=== PATIENT | female | born 1950 | race Caucasian/White ===

== ENCOUNTER 2018-06-04 00:16 | Emergency (ER) | payer MEDICARE, OTHER ==
[~2018-06-04] VITALS: Ht 165.1 cm; Wt 72.6 kg
--- NOTE | 2018-06-04 00:40 | NUR ---
Pt bib rescue. Per paramedics, pt c/o abdominal pain, but pt admits to ER staff that she has no medical complaints and would like to get help with finding placement. Patient states she "wants to find a place to stay with a shower and would like assistance on getting a ride there" Pt will stay in ER until morning and follow up with social services for placement.
--- NOTE | 2018-06-04 03:45 | NUR ---
Pt sleeping at this time, easily arousable via verbal and tactile stimuli.
--- NOTE | 2018-06-04 06:59 | NUR ---
Dietary called for breakfast.
--- NOTE | 2018-06-04 07:09 | NUR ---
Hands off report to Sherry ALEXANDER
--- NOTE | 2018-06-04 07:40 | NUR ---
Left message for equipment worker Werner, per pt request. Awaiting call back.
--- NOTE | 2018-06-04 08:00 | NUR ---
Breakfast provided, pt ate w/ good appetite. No c/o pain.
--- NOTE | 2018-06-04 09:20 | NUR ---
[facility] social worker at bedside assissting ptMika
[2018-06-04 10:07] VITALS: BP 139/79
--- NOTE | 2018-06-04 10:09 | NUR ---
pt has own clothing. a pair of long warm pant provided for pt. pt has own wheelchair functioning well. extra food provided for pt. medical d/c instruction provided and explained to pt with highlighted important instructions for ease of use. Patient verbalizes understanding of instructions.pt d/ezio in stable condition.
--- NOTE | 2018-06-04 10:35 | NUR ---
pt moss picker time for sheleter is at 1750. pt was offered to arrange for taxi in the afternoon. pt still not sure about taxi arrangement yet.
--- NOTE | 2018-06-04 11:48 | NUR ---
pt still in room ,hospital lunch tray provided.
--- NOTE | 2018-06-04 13:18 | NUR ---
pt decided to go to the residential herself, she said she would call the friend to take her there. pt talked to [facility] social work professor again at the time of d/c. pt deneis any pain, dizziness, n/v or anyother distress at this time.
--- NOTE | 2018-06-04 13:21 | NUR ---
pt refused to sign the waiver form, although me and shaked the social and political studies professor went throught the paper twice with her.
--- NOTE | 2018-06-04 13:37 | NUR ---
9:30am: SW consultation requested by ED. SW arrived to ED and met with patient's nurse CATHERINE Powell, discussed patient's case and her needs. SW then met with patient, who was in her assigned ED room. Patient is a 67 year old homeless female; patient was receptive to meeting with this SW. Patient stated being brought into the ED yesterday by paramedics after feeling nausea and lightheaded. Patient stated being homeless for the past 3 years, and living in her boyfriends car until recently when she broke up with her boyfriend. Patient is alert, oriented x 4. Per CATHERINE Powell, patient is receptive to going to a prison. SW discussed shelters options with the patient, and she was in agreement to go to the [facility] the [facility]. SW explained the pick-up locations and pick-up times with patient, and she agreed to be transferred to the pick-up location at [address] [place] [address]. Patient's was wear pants and a sweater, and had an extra sweater and jacket, however an additional pair of pants and a jacket with hoodie was provided to patient by this SW. RN had provided patient with a breakfast tray earlier this morning. Patient stated not taking any medications. No prescriptions needed per ED doctor/RN. SW provided patient with a homeless resource packet which includes a list of locations throughout the [facility] for homeless individuals to get hot meals, showers, sack lunches, and to pick up operator food from food pantries, along with a list of health care clinics, mental health clinics, substance abuse clinics, and pharmacies. SW also provided patient with a copy of the [facility] program which includes a list of all the winter shelters throughout [facility] with the pick-up locations and times for each one. SW explained to the patient that the hospital can assist with transporting the patient to the pick up operator location listed above later on this afternoon, since the pick up operator time was 5:15pm, and patient initially agreed, but then asked if she can be just take the bus on her own and go to the pick-up location. Patient asked if she could think of her options and let SW know which one she wanted. SW agreed, and informed CATHERINE Powell. SW returned to the ED later in the day, and met with patient. Patient stated that she did not want the transportation option that the hospital was providing, and that she can arrange her own transportation to the prison pick-up location this evening. SW completed the homeless waiver form, reviewed it with the patient, and asked her to sign the form, but the patient refused to sign the form. Patient stated she has the resources that KATERINE provided, but that she would not sign any paperwork. CATHERINE Powell informed. Patient discharged to self. Copies of all resources provided and the completed homeless waiver form filed in patient's ED chart.
== END 2018-06-04 13:22 | disposition home or self-care (01) ==
LOC: ER 00:20
DX: R42 Dizziness and giddiness (principal); Z76.5 Malingerer [conscious simulation]; Z59.0 Homelessness
CPT/HCPCS: A4663